=== PATIENT | female | born 1945 | race Caucasian/White ===

== ENCOUNTER 2018-03-29 16:22 | Emergency (ER) | payer OTHER ==
[~2018-03-29] VITALS: Ht 154.9 cm; Wt 59.9 kg
[2018-03-29] MEDS ORDERED: COZAAR50 MG (16:34)
[2018-03-29] MEDS ORDERED: SYNTHROID100 MCG (16:34)
[2018-03-29] MEDS ORDERED: AMBIEN10 MG (16:35)
[2018-03-29] MEDS ORDERED: CITALOPRAM HBR40 MG (16:35)
[2018-03-29] MEDS ORDERED: ATIVAN0.5 M1 (16:35)
[2018-03-29] MEDS ORDERED: CIPRO500 MG PO (23:25)
[2018-03-29] MEDS ORDERED: CELECOXIB200 MG PO (23:25)
== END 2018-03-29 23:52 | disposition home or self-care (01) ==
LOC: ER 16:22
DX: N39.0 Urinary tract infection, site not specified (principal); R10.2 Pelvic and perineal pain; R10.32 Left lower quadrant pain